=== PATIENT | male | born 1955 | race Caucasian/White ===

== ENCOUNTER 2017-12-18 14:50 | Emergency (ER) | payer OTHER ==
[2017-12-18 15:07] VITALS: BMI 25.0
--- NOTE | 2017-12-18 15:07 | PDOC ---
History of Present Illness - General Chief Complaint: Chest Pain Stated Complaint: SOB Time Seen by Provider: 12/18/17 15:07 History Source: Patient Exam Limitations: No Limitations - History of Present Illness Initial Comments: 12/18/17 20:26 Mr. Villafuerte is a 62 yo M with a hx of gastritis presenting to the emergency department with chest pain. The pain began at 1pm and was described as a stabbing pain in the center of the chest without radiation with a severity of 8/ 10 that lasted 10-15 minutes and the severity decreased to 6/10 when EMS arrived. He has taken 6x 81 mg aspirin total since the onset of chest pain. Currently has no chest pain. Endorses having concurrent SOB. Prior to the onset of pain, he ingested at 12:30pm chicken and sweet banana and "swallowed it whole ". He endorses having issues with reflux. Denies: fever, nausea, vomiting, SOB, abdominal pain, diarrhea, and dysuria. Pmhx: gastritis Shx" None Fhx: No cardiac hx Meds: None Allergies: None Social hx: Denies smoking alcohol and current drug use. Used crack smoking modality for 10 years 25 years ago. 12/18/17 20:41 Past History - Past Medical History Allergies/Adverse Reactions: Allergies Allergy/AdvReac Type Severity Reaction Status Date / Time No Known Allergies Allergy Verified 12/18/17 15:05 Home Medications: Ambulatory Orders Ranitidine [Zantac -] 150 mg PO DAILY #14 tablet 12/18/17 Review of Systems - Review of Systems Constitutional: No: Chills, Diaphoresis, Fever HEENTM: No: Recent change in vision, Nose Pain, Throat Pain, Mouth Pain Respiratory: No: Cough, Shortness of Breath Cardiac (ROS): Yes: Chest Pain. No: Palpitations ABD/GI: No: Constipated, Diarrhea, Nausea, Rectal Bleeding, Vomiting, Tarry Stools : No: Burning, Dysuria, Hematuria Musculoskeletal: No: Back Pain Integumentary: No: Rash Neurological: No: Headache, Numbness, Weakness, Ataxia, Dizziness Psychiatric: No: Change in Appetite Endocrine: No: Increased Hunger Hematologic/Lymphatic: No: Anemia *Physical Exam - Physical Exam General Appearance: Yes: Nourished, Appropriately Dressed HEENT: positive: EOMI, BETSY, Normal Voice Neck: negative: Lymphadenopathy (R), Lymphadenopathy (L) Respiratory/Chest: positive: Lungs Clear, Normal Breath Sounds Cardiovascular: positive: Regular Rhythm, Regular Rate, S1, S2. negative: Systolic Murmur Vascular Pulses: Dorsalis-Pedis (R): 3+, Doralis-Pedis (L): 3+ Gastrointestinal/Abdominal: positive: Normal Bowel Sounds. negative: Tender Lymphatic: negative: Adenopathy Musculoskeletal: positive: Normal Inspection. negative: CVA Tenderness Extremity: positive: Normal Capillary Refill, Normal Inspection Integumentary: positive: Normal Color, Dry, Warm Neurologic: positive: pharmacy technician inpatient II-XII NML intact, Fully Oriented, Alert, Normal Mood/ Affect, Normal Response, Motor Strength 5/5 Heart Score/ECG Review - ECG Impressions Normal ECG: Yes ED Treatment Course - LABORATORY CBC & Chemistry Diagram: 12/18/17 16:00 12/18/17 16:00 Medical Decision Making - Medical Decision Making 12/19/17 06:59 Mr. Villafuerte is a 62 yo M with a hx of gastritis presenting with chest pain. ddx: ACS vs PNA vs GERD vs gastritis Initial vitals: Initial Vital Signs Temp Pulse Resp BP Pulse Ox 98.3 F 64 18 149/88 100 12/18/17 15:06 12/18/17 15:06 12/18/17 15:06 12/18/17 15:06 12/18/17 15:06 Work up Laboratory Results - last 24 hr 12/18/17 12/18/17 12/18/17 16:00 16:00 16:00 WBC 7.1 RBC 4.57 Hgb 14.3 Hct 41.5 MCV 90.9 MCH 31.4 MCHC 34.5 RDW 11.8 L Plt Count 197 MPV 11.0 Absolute Neuts (auto) 4.8 Neutrophils % 67.4 Lymphocytes % 19.0 Monocytes % 9.7 Eosinophils % 2.8 Basophils % 1.1 Nucleated RBC % 0 PT with INR 11.80 INR 1.04 Sodium 141 Potassium 4.0 Chloride 105 Carbon Dioxide 25 Anion Gap 11 BUN 13 Creatinine 0.9 Creat Clearance w eGFR > 60 Random Glucose 92 Calcium 8.4 L Total Bilirubin 0.4 AST 20 ALT 37 Alkaline Phosphatase 73 Creatine Kinase 122 Troponin I < 0.02 Total Protein 7.2 Albumin 3.8 Lipase 08/01/2712/18/17 12/18/17 16:00 16:00 19:50 WBC RBC Hgb Hct MCV MCH MCHC RDW Plt Count MPV Absolute Neuts (auto) Neutrophils % Lymphocytes % Monocytes % Eosinophils % Basophils % Nucleated RBC % PT with INR INR Sodium Potassium Chloride Carbon Dioxide Anion Gap BUN Creatinine Creat Clearance w eGFR Random Glucose Calcium Total Bilirubin AST ALT Alkaline Phosphatase Creatine Kinase 125 111 Troponin I < 0.02 < 0.02 Total Protein Albumin Lipase 211 Repeated trops with 4 hour difference in between. Negative both times. Likely the pain due to GI related issues given timing, hx, and physical exam. Disposition: dc to home *DC/Admit/Observation/Transfer Diagnosis at time of Disposition: Atypical chest pain - Discharge Dispostion Disposition: HOME Condition at time of disposition: Stable - Prescriptions Prescriptions: Ranitidine [Zantac -] 150 mg PO DAILY #14 tablet - Referrals Referrals: Jayjay Bacon MD [Staff Physician] - Tyler Castellanos MD [Staff Physician] - Jeremy Cohn MD [Primary Care Provider] - - Patient Instructions Printed Discharge Instructions: DI for Atypical Chest Pain Additional Instructions: Please take all medications as prescribed. Please follow up with your PMD, the transformer repairer and the belt loop machine operator. Please return to the ed with any further concerns or complaints. - Post Discharge Activity
--- NOTE | 2017-12-18 16:37 | PDOC ---
Attending Attestation - Resident Resident Name: RandolphBrett - ED Attending Attestation I have performed the following: I have examined & evaluated the patient, The case was reviewed & discussed with the resident, I agree w/resident's findings & plan, Exceptions are as noted - HPI HPI: 12/18/17 16:33 62 M with no PMH presents to ED with midsternal chest pain that started this afternoon. Pt states that he had just eaten lunch and began to feel a sharp stabbing pain in the middle of his chest. Pt reports associated nausea without vomiting. Also endorses mild SOB. This episode lasted a few minutes before resolving spontaneously. Pt states that he has had similar episodes in the past , usually in the context of eating. Pt reports having fried chicken for lunch. He currently denies any symptoms whatsoever. - Physicial Exam PE: 12/18/17 16:34 "GENERAL: Awake, alert, and fully oriented, in no acute distress. HEAD: No signs of trauma EYES: PERRLA, EOMI, sclera anicteric, conjunctiva clear ENT: Auricles normal inspection, hearing grossly normal, nares patent, oropharynx clear without exudates. Moist mucosa NECK: Nontender, no stepoffs, Normal ROM, supple, no lymphadenopathy, JVD, or masses LUNGS: Breath sounds equal, clear to auscultation bilaterally. No wheezes, and no crackles HEART: Regular rate and rhythm, normal S1 and S2, no murmurs, rubs or gallops ABDOMEN: Soft, nontender, normoactive bowel sounds. No guarding, no rebound. No masses EXTREMITIES: Normal range of motion, no edema. No clubbing or cyanosis. No cords, erythema, or tenderness NEUROLOGICAL: Cranial nerves II through XII intact. 5/5 strength and sensation in all extremities, Normal speech, normal gait, normal cerebellar function SKIN: Warm, Dry, normal turgor, no rashes or lesions noted." - Medical Decision Making 12/18/17 16:35 62 M with transient chest pain, now resolved. Likely GERD related as it occurred in the context of eating. Pt with no ischemic EKG findings. - Labs, trop x2 - CXR 12/18/17 16:55 Pt signed out to oncoming attending at 5pm, pending labs, serial trops, CXR, and re-evaluation. Heart Score/ECG Review - History History: Slightly suspicious - Electrocardiogram EKG: Normal - Age Age: 45-65 - Risk Factors Based on the list above the patient has:: No risk factors known - Troponin Troponin: </= normal limit - Score Heart Score - Total: 1 - ECG Impressions Comment:: 12/18/17 16:34 NSR, no DEXTER/STDs, no TWIs, axis wnl, [place] prolongation 226
[2017-12-18 16:55] LABS: BASO % 1.1 % (0-2.0); EOS % 2.8 % (0-4.5); HEMATOCRIT 41.5 % (35.4-49); HEMOGLOBIN 14.3 GM/dL (11.7-16.9); MCH 31.4 pg (25.7-33.7); MCHC 34.5 g/dl (32.0-35.9); MEAN CELL VOLUME 90.9 fl (80-96); MONO % 9.7 % (3.8-10.2); NEUT % 67.4 % (42.8-82.8); PLATELET COUNT 197 K/MM3 (134-434); RBC 4.57 M/mm3 (4.00-5.60); RDW 11.8 % (11.9-15.9); WHITE BLOOD COUNT 7.1 K/mm3 (4.0-10.0)
[2017-12-18 17:06] LABS: INR 1.04 (0.83-1.09); PROTHROMBIN TIME (PATIENT) 11.8 SEC (9.7-13.0)
[2017-12-18 17:13] LABS: ALBUMIN 3.8 g/dl (3.4-5.0); ANION GAP 11 (8-16); BILIRUBIN,TOTAL 0.4 mg/dL (0.2-1.0); BLOOD UREA NITROGEN 13 mg/dL (7-18); CALCIUM 8.4 mg/dL (8.5-10.1); CHLORIDE 105 mmol/L (98-107); CO2 25 mmol/L (21-32); CREATININE 0.9 mg/dL (0.7-1.3); GLUCOSE,RANDOM 92 mg/dL (74-106); SGOT/AST 20 U/L (15-37); SGPT/ALT 37 U/L (12-78); SODIUM 141 mmol/L (136-145); TOT PROT 7.2 g/dl (6.4-8.2)
[2017-12-18 17:16] LABS: ALK PHOS 73 U/L (45-117)
--- NOTE | 2017-12-18 17:23 | PDOC ---
*Physical Exam - Vital Signs Last Vital Signs Temp Pulse Resp BP Pulse Ox 98.3 F 64 18 149/88 100 12/18/17 15:06 12/18/17 15:06 12/18/17 15:06 12/18/17 15:06 12/18/17 15:06 - Physical Exam Comments: 12/18/17 21:23 Gen: aaox3, nad heart: +s1s2 reg lungs: cta b.l abd: soft, nt/nd +bs ext: no c/c/e ED Treatment Course - LABORATORY CBC & Chemistry Diagram: 12/18/17 16:00 12/18/17 16:00 - ADDITIONAL ORDERS Additional order review: Laboratory Results 12/18/17 12/18/17 12/18/17 16:00 16:00 16:00 PT with INR INR Sodium 141 Potassium 4.0 Chloride 105 Carbon Dioxide 25 Anion Gap 11 BUN 13 Creatinine 0.9 Creat Clearance w eGFR > 60 Random Glucose 92 Calcium 8.4 L Total Bilirubin 0.4 AST 20 ALT 37 Alkaline Phosphatase 73 Creatine Kinase 125 122 Troponin I < 0.02 < 0.02 Total Protein 7.2 Albumin 3.8 Lipase 211 12/18/17 16:00 PT with INR 11.80 INR 1.04 Sodium Potassium Chloride Carbon Dioxide Anion Gap BUN Creatinine Creat Clearance w eGFR Random Glucose Calcium Total Bilirubin AST ALT Alkaline Phosphatase Creatine Kinase Troponin I Total Protein Albumin Lipase Medical Decision Making - Medical Decision Making 12/18/17 21:24 pt signed out form the prior attending for burning sensation in the chest after eating fried chicken -suspect acid reflux -2 trops negative -pt feeling much better -no complaints at this time pt stable for d/c to home and outpt follow up with gi and cards 12/18/17 21:25 discussed plan with the patient and d/c to home *DC/Admit/Observation/Transfer Diagnosis at time of Disposition: Atypical chest pain - Discharge Dispostion Disposition: HOME Condition at time of disposition: Stable Decision to Admit order: No - Prescriptions Prescriptions: Ranitidine [Zantac -] 150 mg PO DAILY #14 tablet - Referrals Referrals: Jeremy Cohn MD [Primary Care Provider] - Jayjay Bacon MD [Staff Physician] - Tyler Castellanos MD [Staff Physician] - - Patient Instructions Printed Discharge Instructions: DI for Atypical Chest Pain Additional Instructions: Please take all medications as prescribed. Please follow up with your PMD, the tank welder and the plate grainer. Please return to the ed with any further concerns or complaints. - Post Discharge Activity - Attestations Physician Attestion: 12/18/17 21:27 I, Dr. Savanna Velasquez, DO, attest that this document has been prepared under my direction and personally reviewed by me in its entirety. I further attest, that it accurately reflects all work, treatment, procedures and medical decision -making performed by me.
[2017-12-18 18:25] VITALS: TEMP 98.1
[2017-12-18 21:21] VITALS: BP 117/60; PULSE 57
--- NOTE | 2017-12-19 08:33 | EKG ---
Test Reason : Blood Pressure : / mmHG Vent. Rate : 060 BPM Atrial Rate : 060 BPM P-R Int : 226 ms QRS Dur : 084 ms QT Int : 398 ms P-R-T Axes : 038 060 041 degrees QTc Int : 398 ms SINUS RHYTHM WITH 1ST DEGREE A-V BLOCK POSSIBLE LEFT ATRIAL ENLARGEMENT NO PREVIOUS ECGS AVAILABLE Confirmed by DANIELLE ESPAÑA MD ([id number]) on 12/19/2017 8:33:03 AM Referred By: Confirmed By:DANIELLE ESPAÑA MD
== END 2017-12-18 21:38 | disposition home or self-care (01) ==
LOC: JER 14:50
DX: R07.89 Other chest pain (principal)
CPT/HCPCS: 36415; 71045-TC-FY; 80053; 82550; 83690; 84484; 85025; 85610; 93005; 93010; 99285-25

== ENCOUNTER 2018-07-23 10:32 | Emergency (ER) | payer SELFPAY ==
[2018-07-23 10:46] VITALS: BP 112/73; PULSE 65; TEMP 97.5; BMI 26.6
[2018-07-23] MEDS ORDERED: CYCLOBENZAPRINE HCL 10 MG TABLET (FP) PO ONE (11:52)
[2018-07-23] MEDS ORDERED: KETOROLAC TROMETHAMINE 60 MG/2 ML VIAL IM ONE (11:52)
[2018-07-23] MEDS ORDERED: CYCLOBENZAPRINE HCL 10 MG TABLET (FP) ONE (11:54)
[2018-07-23] MEDS ORDERED: KETOROLAC TROMETHAMINE 60 MG/2 ML VIAL ONE (11:54)
--- NOTE | 2018-07-23 11:59 | PDOC ---
History of Present Illness - General Chief Complaint: Back Pain Stated Complaint: LOWER BACK PAIN Time Seen by Provider: 07/23/18 11:43 History Source: Patient Exam Limitations: Clinical Condition - History of Present Illness Initial Comments: 07/23/18 11:54 Patient with no significant past medical history present with complaining of 5 day history of left lower back pain radiating to posterior left thigh after heavy lifting at work 5 days ago. Patient reported he was lifting of boxes at work symptoms days ago but did not feel any pain until the next day. Patient did not take anything for pain. Report pain is worse when getting up from a sitting position. Denies united frequency, hematuria or any denies symptoms. Denies nausea or vomiting or fever. Timing/Duration: other (5 days) Past History - Past Medical History Allergies/Adverse Reactions: Allergies Allergy/AdvReac Type Severity Reaction Status Date / Time No Known Allergies Allergy Verified 07/23/18 10:46 Home Medications: Ambulatory Orders Ranitidine [Zantac -] 150 mg PO DAILY #14 tablet 12/18/17 Methocarbamol [Robaxin -] 500 mg PO BID #14 tablet 07/23/18 Naproxen 500 mg PO BID PRN #20 tablet 07/23/18 COPD: No Other medical history: DENIES - Immunization History Immunization Up to Date: Yes - Suicide/Smoking/Psychosocial Hx Smoking History: Never smoked Have you smoked in the past 12 months: No Information on smoking cessation initiated: No Hx Alcohol Use: No Drug/Substance Use Hx: No Review of Systems - Review of Systems Able to Perform ROS?: Yes Is the patient limited Dominican proficient: No Constitutional: No: Chills, Fever, Malaise HEENTM: No: Symptoms Reported Respiratory: No: Symptoms reported, See HPI, Cough, Orthopnea, Shortness of Breath, SOB with Exertion, SOB at Rest, Stridor, Wheezing, Productive cough, Hemoptysis, Other Cardiac (ROS): No: Symptoms Reported, See HPI, Chest Pain, Edema, Irregular Heart Rate, Lightheadedness, Palpitations, Syncope, Chest Tightness, Other ABD/GI: No: Symptoms Reported, Constipated, Diarrhea, Nausea, Vomiting, Abdominal cramping : No: Frequency, Flank Pain, Hematuria, Urgency Musculoskeletal: Yes: See HPI, Back Pain (left lower back), Muscle Pain (left side of back) Neurological: No: Numbness, Paresthesia, Dizziness All Other Systems: Reviewed and Negative *Physical Exam - Vital Signs Last Vital Signs Temp Pulse Resp BP Pulse Ox 97.5 F L 65 17 112/73 100 07/23/18 10:41 07/23/18 10:41 07/23/18 10:41 07/23/18 10:41 07/23/18 10:41 - Physical Exam Comments: 07/23/18 11:57 GENERAL: Well developed, well nourished. Awake and alert. No acute distress. CARDIOVASCULAR: Regular rate and rhythm. No murmurs, rubs, or gallops. PULMONARY: No evidence of respiratory distress. Lungs clear to auscultation bilaterally. No wheezing, rales or rhonchi. ABDOMINAL: Soft. Non-tender. Non-distended. No rebound or guarding. No organomegaly. Normoactive bowel sounds MUSCULOSKELETAL : Moderate tenderness to left paravertebral muscle of lower lumbar spine of L2-S1. Pain worse with external rotation of hip to the right. No CVA tenderness bilateral. No bony deformities EXTREMITIES: No cyanosis. No clubbing. No edema. No calf tenderness. SKIN: Warm and dry. Normal capillary refill. No rashes. NEUROLOGICAL: Alert, awake, appropriate. No motor deficits in the lower extremities. Gait is normal without ataxia. PSYCHIATRIC: Cooperative. Good eye contact. Appropriate mood and affect. General Appearance: Yes: Nourished, Appropriately Dressed, Mild Distress Moderate Sedation - Procedure Monitoring Vital Signs: Procedure Monitoring Vital Signs Temperature 97.5 F L 07/23/18 10:41 Pulse Rate 65 07/23/18 10:41 Respiratory Rate 17 07/23/18 10:41 Blood Pressure 112/73 07/23/18 10:41 O2 Sat by Pulse Oximetry (%) 100 07/23/18 10:41 ED Treatment Course - RADIOLOGY Radiology Studies Ordered: Category Date Time Status SPINE-LUMBAR SACRAL [RAD] Stat Radiology 07/23/18 11:52 Ordered Medical Decision Making - Medical Decision Making 07/23/18 11:59 Patient with no significant past medical history present with complaint of 5 day history of left lower back pain which is worse and with movement after heavy lifting. Exam significant for moderate tenderness to left lower lumbar region which is worse with external rotation of hip to the right. Symptoms likely muscle skeletal strain with back spasm and less likely kidney stone or pyelonephritis. No CVA tenderness on exam. Toradol 60 mg IM and cyclobenzaprine 10 mg by mouth given for pain and spasm. X- ray of lumbosacral ordered to rule out acute pathology. 07/23/18 12:30 x-rays of lumbosacral shows no acute pathology. Patient report mild improvement in pain with Toradol. Patient stable for discharge on naproxen and robaxin with orthopedics follow-up as needed *DC/Admit/Observation/Transfer Diagnosis at time of Disposition: Lumbago Qualifiers: Chronicity: acute Back pain laterality: left Sciatica presence: without sciatica Qualified Code(s): M54.5 - Low back pain - Discharge Dispostion Disposition: HOME Condition at time of disposition: Stable Decision to Admit order: No - Prescriptions Prescriptions: Methocarbamol [Robaxin -] 500 mg PO BID #14 tablet Naproxen 500 mg PO BID PRN #20 tablet PRN Reason: Back Pain - Referrals Referrals: Mike Moon DO [Staff Physician] - - Patient Instructions Printed Discharge Instructions: Exercise May Reduce Risk of Low Back Pain Additional Instructions: Take medications as needed for pain. Apply heat to lower back 2-3 times/day for 5-10mins as needed for back pain. Rest low back. Follow-up with referred orthopedics if no improvement after 3 days - Post Discharge Activity Forms/Work/School Notes: Back to Work
== END 2018-07-23 12:39 | disposition home or self-care (01) ==
LOC: JERFT 10:32
PROC: 3E0233Z Introduction of Anti-inflammatory into Muscle, Percutaneous Approach (ICD-10-PCS; principal; 2018-07-23)
DX: S39.012A Strain of muscle, fascia and tendon of lower back, initial encounter (principal); M62.830 Muscle spasm of back; X50.0XXA Overexertion from strenuous movement or load, initial encounter; Y93.89 Activity, other specified; Y92.63 Factory as the place of occurrence of the external cause; Y99.0 Civilian activity done for income or pay
CPT/HCPCS: 72100-TC-FY; 99281-25

== ENCOUNTER 2019-02-25 09:12 | Emergency (ER) | payer SELFPAY ==
[2019-02-25 09:27] VITALS: BP 130/71; PULSE 75; TEMP 97.6; BMI 26.9
[2019-02-25] MEDS ORDERED: ALBUTEROL SO4 0.083% IH SOL 2.5 MG/3 ML VIAL.NEB. NEB ONE ×2 (09:37→09:41)
[2019-02-25] MEDS ORDERED: predniSONE 20 MG TABLET (UD) ONE (09:37)
[2019-02-25] MEDS ORDERED: predniSONE 20 MG TABLET (UD) PO ONE (09:41)
--- NOTE | 2019-02-25 09:52 | PDOC ---
History of Present Illness - General Chief Complaint: Cold Symptoms Stated Complaint: COUGH Time Seen by Provider: 02/25/19 09:25 History Source: Patient Exam Limitations: No Limitations - History of Present Illness Initial Comments: 02/25/19 09:45 Patient states has had moist cough x3 weeks. States is never been associated with a fever, has minimal phlegm production. Denies seasonal allergies but wonders if has a component. Has copious postnasal drainage. No earache, no sore throat pain, no one else at home is sick. Patient does not smoke Is this a multiple visit Asthma Patient?: Yes Timing/Duration: reports: constant Severity: reports: mild, moderate Associated Symptoms: reports: cough, nasal congestion, nasal drainage. denies: earache, fever/chills Past History - Travel Traveled outside of the country in the last 30 days: No Close contact w/someone who was outside of country & ill: No - Past Medical History Allergies/Adverse Reactions: Allergies Allergy/AdvReac Type Severity Reaction Status Date / Time No Known Allergies Allergy Verified 07/23/18 10:46 Home Medications: Ambulatory Orders Albuterol Sulfate Inhaler - [Ventolin HFA Inhaler -] 1 - 2 inh PO Q4H #1 inhaler 02/25/19 predniSONE [Deltasone -] 20 mg PO BID #8 tablet 02/25/19 COPD: No - Immunization History Immunization Up to Date: Yes - Psycho Social/Smoking Cessation Hx Smoking History: Never smoked Have you smoked in the past 12 months: No Information on smoking cessation initiated: No Hx Alcohol Use: No Drug/Substance Use Hx: No Review of Systems - Review of Systems Able to Perform ROS?: Yes Is the patient limited Luxembourger proficient: Yes Constitutional: Yes: Symptoms Reported, See HPI, Malaise. No: Chills, Fever HEENTM: Yes: Symptoms Reported, See HPI, Nose Congestion, Throat Pain Respiratory: Yes: Symptoms reported, See HPI, Cough. No: Wheezing Cardiac (ROS): No: Symptoms Reported Musculoskeletal: No: Symptoms Reported Integumentary: No: Symptoms Reported Neurological: Yes: See HPI. No: Symptoms reported All Other Systems: Reviewed and Negative *Physical Exam - Vital Signs Last Vital Signs Temp Pulse Resp BP Pulse Ox 97.6 F 75 16 130/71 97 02/25/19 09:25 02/25/19 09:25 02/25/19 09:25 02/25/19 09:25 02/25/19 09:25 - Physical Exam General Appearance: Yes: Nourished, Appropriately Dressed, Apparent Distress, Mild Distress HEENT: positive: BETSY, Normal ENT Inspection, TMs Normal (Congested but landmarks easily visualized), Rhinorrhea Neck: positive: Supple. negative: Tender, Lymphadenopathy (R), Lymphadenopathy (L) Respiratory/Chest: positive: Lungs Clear. negative: Decreased Breath Sounds, Rhonchi, Wheezing Gastrointestinal/Abdominal: positive: Soft. negative: Tender Musculoskeletal: negative: CVA Tenderness Extremity: positive: Normal Capillary Refill, Normal Inspection, Normal Range of Motion Integumentary: positive: Normal Color, Dry Neurologic: positive: starting gate driver II-XII NML intact, Fully Oriented, Alert, Normal Mood/ Affect, Normal Response, Motor Strength 09/13 ED Treatment Course - Medications Given in the ED: ED Medications Discontinued Medications Generic Name Dose Route Start Last Admin Trade Name Freq PRN Reason Stop Dose Admin Albuterol Sulfate 1 amp 02/25/19 09:41 02/25/19 09:45 Ventolin 0.083% Nebulizer Soln - NEB 02/25/19 09:42 1 amp ONCE ONE Administration Prednisone 40 mg 02/25/19 09:41 02/25/19 09:45 Deltasone - PO 02/25/19 09:42 40 mg ONCE ONE Administration ED Progress Note - Progress Note Progress Note: 02/25/19 10:42 Probable allergic rhinitis, much improved after albuterol nebulizer and prednisone 40 mg, will continue the inhalers, prednisone for additional 4 days and have follow-up with PMD Discharge - Discharge Information Problems reviewed: No Clinical Impression/Diagnosis: Allergic rhinitis Qualifiers: Allergic rhinitis trigger: unspecified Allergic rhinitis seasonality: unspecified Qualified Code(s): J30.9 - Allergic rhinitis, unspecified Condition: Stable Disposition: HOME - Admission No - Additional Discharge Information Prescriptions: Albuterol Sulfate Inhaler - [Ventolin HFA Inhaler -] 1 - 2 inh PO Q4H #1 inhaler predniSONE [Deltasone -] 20 mg PO BID #8 tablet - Follow up/Referral - Patient Discharge Instructions Patient Printed Discharge Instructions: DI for Allergic Rhinitis Additional Instructions: Rest, drink lots of fluids: Teas, water, soups Saltwater gargles. Consider humidifier in room at night Steamy showers/seem to face break up mucus Avoid contact with allergens, exposure to pollens, close windows on a windy day Lots of handwashing and good hygiene Continue [id number] medications for symptomatic relief- may use allergic eyedrops for itching I Continue antihistamines daily until pollen season is over; Zyrtec, Claritin, Morena during the daytime and Benadryl at nighttime as will make sleepy Tylenol or Motrin for fever and pain Albuterol, 2 puffs 4 times a day for the next 2 to 3 days then as needed for continued cough Prednisone 40 mg daily for the next 4 days. Followup with private physician in one to 2 days as needed Consider following up with an infrastructure architect/lozenge dough mixer for skin testing and possible allergy shots Return to emergency department for worsened symptoms, fevers, dehydration - Post Discharge Activity Work/Back to School Note: Back to Work
== END 2019-02-25 09:52 | disposition home or self-care (01) ==
LOC: JERFT 09:12
PROC: 3E0F7GC Introduction of Other Therapeutic Substance into Respiratory Tract, Via Natural or Artificial Opening (ICD-10-PCS; principal; 2019-02-25)
DX: J30.9 Allergic rhinitis, unspecified (principal)
CPT/HCPCS: 99281-25

== ENCOUNTER 2021-10-13 21:56 | Emergency (ER) | payer OTHER ==
[2021-10-13 22:03] VITALS: BP 127/75; PULSE 61; TEMP 97.9; BMI 25.8
[2021-10-13] MEDS ORDERED: DIPHTH,PERTUSS(ACELL),TET 0.5 ML DISP.SYRIN IM ONE ×2 (22:54→22:55)
== END 2021-10-13 23:15 | disposition home or self-care (01) ==
LOC: JERFT 21:56
PROC: 0HQ0XZZ Repair Scalp Skin, External Approach (ICD-10-PCS; principal; 2021-10-13)
PROC: 3E0234Z Introduction of Serum, Toxoid and Vaccine into Muscle, Percutaneous Approach (ICD-10-PCS; 2021-10-13)
DX: S01.111A Laceration without foreign body of right eyelid and periocular area, initial encounter (principal); W21.05XA Struck by basketball, initial encounter; Y93.67 Activity, basketball
CPT/HCPCS: 12001; 90471; 90715; 99284-25

== ENCOUNTER 2023-09-22 13:25 | Emergency (ER) | payer OTHER ==
[2023-09-22 13:33] VITALS: BP 124/68; PULSE 73; RESP 18; TEMP 98.4; BMI 25.8
[2023-09-22] MEDS ORDERED: FLUORESCEIN NA 1 EA STRIP ONE (14:01)
[2023-09-22] MEDS ORDERED: TETRACAINE 0.5% OPHTH SOLN 2 ML BOTTLE ONE (14:01)
[2023-09-22] MEDS: FLUORESCEIN NA 1 EA STRIP OD ONE (14:06)
[2023-09-22] MEDS: TETRACAINE 0.5% HCL 0.6ML DROPPER.BOTTLE OD ONE (14:06)
[2023-09-22] MEDS ORDERED: DORZOLAMIDE 2% HCL OPHTHALMIC SOLUTION 10 ML BOTTLE OD SCH (14:30)
[2023-09-22] MEDS ORDERED: TIMOLOL 0.5% OPHTHALMIC SOL 5 ML BOTTLE OD SCH (14:32)
== END 2023-09-22 15:10 | disposition home or self-care (01) ==
LOC: JER 13:25
DX: H57.11 Ocular pain, right eye (principal); H11.31 Conjunctival hemorrhage, right eye; H40.89 Other specified glaucoma
CPT/HCPCS: 99283-25